=== PATIENT | male | born 1990 | race African-American/Black ===

== ENCOUNTER 2016-11-07 23:45 | Emergency (ER) | payer OTHER ==
[~2016-11-07] VITALS: Ht 180.3 cm; Wt 72.6 kg
--- NOTE | 2016-11-08 00:50 | ED HEAD/FACIAL INJ COMPLAINT ---
History of Present Illness General Chief Complaint: Facial or Head Injury Stated Complaint: HIT IN FACE W/PIPE DENIES LOC Source: patient Exam Limitations: no limitations Vital Signs & Intake/Output Vital Signs & Intake/Output Vital Signs Date Time Temp Pulse Resp B/P B/P Pulse O2 O2 Flow FiO2 Mean Ox Delivery Rate 11/08 0236 96.2 94 18 131/62 100 Room Air 11/08 0031 97.6 63 16 129/77 98 Room Air Allergies Coded Allergies: No Known Allergies (11/08/16) Triage Note: 26YO MALE TO TRIAGE W/CO NOSEBLEED SP GETTING HIT IN FACE TONITE W/PLASTIC PVC PIPE. NO LOC. Triage Nurses Notes Reviewed? yes Onset: Abrupt Severity: moderate Location: frontal Method of Injury: direct blow Loss of Consciousness: no loss of consciousness Associated Symptoms: swelling of nose HPI: 26-year-old gentleman presents with a nasal and head injury. 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 One of these pressurized pipes inadvertently fired and hit him in the nose. This occurred approximately 1 hour prior to arrival. He notes a mild headache nasal swelling and continued mild bleeding from both of his nares. He did not lose consciousness. He has no other injury. He does state that he was drinking alcohol tonight. He is otherwise well. Past History Travel History Traveled to [place] past 21 day No Medical History Any Pertinent Medical History? see below for history Surgical History Surgical History: none Psychosocial History What is your primary language [place]araguan Tobacco Use: Current Daily Use Daily Tobacco Use Amount/Type: =< 4 Cigarettes daily Family History Hx Contributory? No Sexual History Past Sexual History Unobtainable at this time Employment History Past Employment History Unobtainable at this time Review of Systems Review of Systems Constitutional: Reports: no symptoms. EENTM: Reports: no symptoms. Respiratory: Reports: no symptoms. Cardiovascular: Reports: no symptoms. GI: Reports: no symptoms. Genitourinary: Reports: no symptoms. Musculoskeletal: Reports: no symptoms. Skin: Reports: no symptoms. Neurological/Psychological: Reports: no symptoms. Hematologic/Endocrine: Reports: no symptoms. Immunologic/Allergic: Reports: no symptoms. All Other Systems: Reviewed and Negative Physical Exam Physical Exam General Appearance: well developed/nourished, mild distress Eyes: Bilateral: PERRL, EOMI. Ears, Nose, Throat: normal pharynx, hearing grossly normal, symmetric swelling of nasal bridge with tenderness to palpation. minimal bleeding from right nare. crescent shaped ecchymosis on tip of nose. Neck: normal inspection, supple Respiratory: normal breath sounds Cardiovascular: regular rate/rhythm Gastrointestinal: soft, non-tender Back: normal inspection Extremities: normal inspection, normal range of motion, no edema Psychiatric: awake, alert, oriented x 3 Cranial Nerves: normal hearing, normal speech, PERRL Coordination/Gait: normal finger to nose, normal gait Motor/Sensory: no motor/sensory deficits Reflexes: 1+: bicep (R), bicep (L). Skin: intact, normal color, warm/dry Lymphatic: no anterior cervical luis alberto Progress Differential Diagnosis: ICH, orbit fracture, skull fracture Plan of Care: Orders Procedure Date/time Status CT HEAD WO IV CONTRAST 11/[address] MAXILLOFACIAL W/O CON 11/08 99 Active Diagnostic Imaging: Viewed by Me: CT Scan. Discussed w/RAD: CT Scan. Radiology Impression: head/maxillo facial... no acute dz... full report below. Comments: PATIENT: JEANNETTE WOODARD PRESENT AGE: 26 PATIENT ACCOUNT NO: [id number] : 88 LOCATION: [facility] ORDERING PHYSICIAN: DARWIN PRATT MD SERVICE DATE: 11/08/16 EXAM TYPE: CAT - CT HEAD WO IV CONTRAST; CT MAXILLOFACIAL W/O CON EXAMINATION: NONCONTRAST HEAD CT NONCONTRAST MAXILLOFACIAL CT INDICATION INFORMATION: Nasal/facial/head injury COMPARISON: None TECHNIQUE: Separate noncontrast CT examinations of the head and maxillofacial bones were performed. Coronal and sagittal images were created for each examination at the technologist workstation. DLP: 647.92,469.18 mGy-cm FINDINGS: Head: There is no evidence of acute intracranial hemorrhage or territorial infarction. No abnormal mass-effect or midline shift is seen. Soto to white matter differentiation is well preserved. No extra-axial fluid collections are identified. The ventricles are normal in size. There is no abnormal attenuation within the brain parenchyma. The osseous structures and soft tissues are normal. The mastoid air cells are well aerated. Maxillofacial: No acute maxillofacial fractures are seen. There is near complete opacification of the left sphenoid sinus. There is trace mucosal thickening of the maxillary sinuses and right sphenoid sinus. There is mucosal thickening of the ethmoid air cells bilaterally. The frontal sinuses are not pneumatized. The uncinate process is normal bilaterally. The infundibula and middle meati are patent. The nasal septum is midline. The mandibular condyles are well-seated in the condylar fossa. The orbits demonstrate a normal appearance bilaterally. The globes are intact, and there are no suspicious findings to suggest retrobulbar hemorrhage. IMPRESSION: 1. Head: No acute intracranial findings. 2. Maxillofacial bones: No fracture identified. Paranasal sinus disease as described above. DICTATED BY: DANA BLANCO MD DATE/TIME DICTATED:11/08/16136 COLOR CHECKER:PARRIS DATE/TIME TRANSCRIBED:11/08/16136 CONFIDENTIAL, DO NOT COPY WITHOUT APPROPRIATE AUTHORIZATION. <Electronically signed in Other Vendor System> SIGNED BY: DANA BLANCO MD 11/08/16 0155 Departure Departure Disposition: HOME OR SELF CARE Condition: Stable Clinical Impression Primary Impression: Nasal injury Secondary Impressions: Head injury Referrals: PATIENT HAS NO PRIMARY CARE DR (PCP/Family) Departure Forms: Customer Survey General Discharge Information
--- NOTE | 2016-11-08 01:55 | CT SCAN REPORT ---
EXAMINATION: NONCONTRAST HEAD CT NONCONTRAST MAXILLOFACIAL CT INDICATION INFORMATION: Nasal/facial/head injury COMPARISON: None TECHNIQUE: Separate noncontrast CT examinations of the head and maxillofacial bones were performed. Coronal and sagittal images were created for each examination at the technologist workstation. DLP: 647.92,469.18 mGy-cm FINDINGS: Head: There is no evidence of acute intracranial hemorrhage or territorial infarction. No abnormal mass-effect or midline shift is seen. Soto to white matter differentiation is well preserved. No extra-axial fluid collections are identified. The ventricles are normal in size. There is no abnormal attenuation within the brain parenchyma. The osseous structures and soft tissues are normal. The mastoid air cells are well aerated. Maxillofacial: No acute maxillofacial fractures are seen. There is near complete opacification of the left sphenoid sinus. There is trace mucosal thickening of the maxillary sinuses and right sphenoid sinus. There is mucosal thickening of the ethmoid air cells bilaterally. The frontal sinuses are not pneumatized. The uncinate process is normal bilaterally. The infundibula and middle meati are patent. The nasal septum is midline. The mandibular condyles are well-seated in the condylar fossa. The orbits demonstrate a normal appearance bilaterally. The globes are intact, and there are no suspicious findings to suggest retrobulbar hemorrhage. IMPRESSION: 1. Head: No acute intracranial findings. 2. Maxillofacial bones: No fracture identified. Paranasal sinus disease as described above.
[2016-11-08 02:36] VITALS: BP 131/62
== END 2016-11-08 02:43 ==
LOC: ERH 23:45
DX: S09.92XA Unspecified injury of nose, initial encounter (principal); S09.90XA Unspecified injury of head, initial encounter; W22.8XXA Striking against or struck by other objects, initial encounter; Y93.89 Activity, other specified; Y92.9 Unspecified place or not applicable